=== PATIENT | male | born 1950 | race Caucasian/White ===

== ENCOUNTER 2018-09-26 10:42 | Inpatient (IN) | payer OTHER ==
[~2018-09-26] VITALS: Ht 185.4 cm; Wt 101.2 kg
--- NOTE | 2018-09-26 11:06 | NUR ---
LAB AT BEDSIDE FOR LAB DRAW FROM PT'S LFA IV, DR WADE AT BEDSIDE FOR MSE.
--- NOTE | 2018-09-26 11:15 | NUR ---
XRAY AT BEDSIDE.
--- NOTE | 2018-09-26 11:22 | NUR ---
PT MEDICATED PER EMAR, PT STS IN APPROX 45 MINS, HE IS DUE TO TAKE "MY EPILESY MEDICATION, CAN I TAKE THEM?", PER DR WADE, PT IS OK TO TAKE HOME MEDS FOR EPILEPSY, PT MADE AWARE.
--- NOTE | 2018-09-26 11:25 | NUR ---
PT INSTRUCTED TO PROVIDE CLEAN CATCH URINE SAMPLE, URINAL AND WIPES PLACED AT BEDSIDE, PT PROVIDED WITH PRIVACY, WILL CONTINUE TO MONITOR.
[2018-09-26 11:44] LABS: BASOPHIL % 0.7 % (0-2); PLATELET COUNT 211 x10^3mcL (130-400); RED CELL DISTRIBUTION WIDTH 12.6 % (11.5-14.5)
[2018-09-26 11:50] LABS: CALCIUM 9.1 mg/dL (8.5-10.1); CARBON DIOXIDE 25.6 mmol/L (21-32); CHLORIDE SERUM 106 mmol/L (98-107); CREATININE SERUM 1.2 mg/dL (0.7-1.3); GFR1 > 60 mL/min; GLUCOSE SERUM 109 mg/dL (74-106); POTASSIUM SERUM 4.3 mmol/L (3.5-5.1); SODIUM SERUM 145 mmol/L (136-145)
[2018-09-26 11:55] LABS: ALBUMIN 3.9 g/dL (3.4-5.0); ALKALINE PHOSPHATASE 109 U/L (46-116); ALT/SGPT 44 U/L (16-63); AST/SGOT 36 U/L (15-37); BILIRUBIN TOTAL 0.4 mg/dL (0.20-1.00); TOTAL PROTEIN, SERUM 7.7 g/dL (6.4-8.2)
--- NOTE | 2018-09-26 12:08 | NUR ---
PT MEDICATED PER EMAR.
[2018-09-26] MEDS ORDERED: MYS250 PO ×2 (12:10→15:03)
[2018-09-26] MEDS ORDERED: PRA40 PO (12:11)
[2018-09-26] MEDS ORDERED: TEGRETOL200 MG PO ×4 (12:11→15:08)
[2018-09-26] MEDS ORDERED: ATENOLOL25 MG PO ×2 (12:11→15:10)
[2018-09-26] MEDS ORDERED: LAMOTRIGINE100 M1 PO ×3 (12:12→15:16)
--- NOTE | 2018-09-26 12:37 | NUR ---
OBINNA FRAGA AT BEDSIDE FOR REPEAT EKG.
--- NOTE | 2018-09-26 13:00 | NUR ---
LAB MADE AWARE OF LABS PENDING FOR PT, PHLEBOTOMISTS STATE THEY WILL CARRY OUT ORDER.
--- NOTE | 2018-09-26 13:34 | NUR ---
REPORT GIVEN TO DILIP LAMAR TO ASSUME CARE OF PT.
--- NOTE | 2018-09-26 13:40 | NUR ---
SPOKE WITH MERCHANT BANKER ADI, INFORMED TO PENDING LAB RESULTS FOR PT, STS LABS WILL BE INPUTTED IN APPROX 10 MINS.
--- NOTE | 2018-09-26 14:06 | NUR ---
PT MEDICATED PER EMAR,
--- NOTE | 2018-09-26 14:20 | NUR ---
RECIEVED REPORT FROM MARGRET ED NURSE PRIOR TO PATIENT ARRIVING TO UNIT. ALL QUESTIONS AND CONCERNS ADDRESSED. PATIENT ARRIVED TO ICU 8 AT 1420 VIA GURNEY ATTACHED TO INFANT NANNY ACCOMPANIED [place] NURSE. VS UPON ARRIVAL: TEMP 98.4 F, NIBP 154/71, MAP 88, HR 67, RR 14, 02 SAT 97% AND PATIENT DENIES ANY PAIN AT THIS TIME. NITRO PATCH NOTED TO PATIENT'S MID CHEST. PATIENT IS A/O X4. ABLE TO FOLLOW COMMANDS AND MAKE NEEDS KNOWN. LS ARE CTA BILATERALLY. NO SIGNS OF RESP DISTRESS. SKIN IS INTACT. IV NOTED TO LFA IN PLACE AND INFUSING WELL WITH NO SIGNS OF INFILTRATION. HEPARIN DRIP INFUSING AT 1200 U/HR. BED TO LOWEST POSITION, SIDE RAILS UP X2, CALL LIGHT WITHIN REACH. WILL CONTINUE TO MONITOR.
[2018-09-26 14:57] VITALS: Ht 185.4 cm; Wt 101.2 kg
[2018-09-26] MEDS ORDERED: PRAVASTATIN SOD40 M1 PO (15:10)
[2018-09-26 15:47] VITALS: BP 154/71
--- NOTE | 2018-09-26 17:50 | NUR ---
LAB CALLED WITH CRITICAL TROPONIN 5.395. DR. FROST MADE AWARE AND IS AT BEDSIDE ASSESSING AND TALKING TO PATIENT AT THIS TIME. WILL CONTINUE TO MONITOR.
--- NOTE | 2018-09-26 19:00 | NUR ---
RECEIVED REPORT FROM MICHAEL CHERRY. ASSUMING ALL CARE
[2018-09-26 19:12] VITALS: BP 147/74
--- NOTE | 2018-09-26 19:15 | NUR ---
RECEIVED PT LAYING IN BED. PT IS A/OX4. SPEECH IS CLEAR. ABLE TO MAKE NEEDS KNOWN. PERRLA NOTED BILAT. GCS=15. DENIES MORA. NO FACIAL DROOP NOTED. SEIZURE PRECATIONS IN PLACE. EENT FREE OF DISCHARGE. ORAL MUCOSA PINK AND MOIST. NO JVD NOTED. TRACHEA MIDLINE. BREATHING IS E/U ON RA. LUNGS SOUND CLEAR BILAT. SYMMETRICAL CHEST EXPANSION NOTED. DENIES ANY SOB. S1/S2 HEART SOUNDS AUSCULTATED. CHEST WALL EQUAL AND SYMMETRICAL. PT DENIES ANY CP AT THIS TIME. NITRO PATCH NOTED TO MID CHEST AREA. HR 69 NIBP 147/74 MAP 85. HEPARIN GTT INFUSING @ 1200 UNITS/HR. PALPABLE PULSES X4 EXTREMITIES. SKIN IS WARM AND DRY. NO EDEMA NOTED. CAP REFILL < [address]S. LFA IV IN PL[address] WITH NO S/S OF INFILTRATION NOTED. D5NS INFUSING @ 80 ML/HR. NO JOINT SWELLING/DEFORMITY NOTED. ACTIVE FULL ROM X4 EXTREMITIES. PT IS ON CARDIAC DIET. NO N/V NOTED. ABD IS SOFT, ROUND, NONTENDER TO PALPATION. BOWEL SOUNDS ACTIVE X4 QUADRANTS. NO BM NOTED. PT VOIDS FREELY VIA URINAL. NO SCROTAL EDEMA NOTED. SKIN IS INTACT. PT ABLE TO REPOSITION SELF INDEPENDENTLY. PT IS CALM AND COOPERATIVE. BED IN LOW POSITION. CALL LIGHT IN REACH. WILL CONT TO MONITOR
--- NOTE | 2018-09-26 20:00 | NUR ---
CRIME SCENE SPECIALIST AT BEDSIDE FOR TROPONIN AND PTT LAB DRAW
--- NOTE | 2018-09-26 20:50 | NUR ---
PTT 47.7. NO CHANGE TO HEPARIN GTT PER PROTOCOL. WILL ORDER PTT FOR 01:00.
--- NOTE | 2018-09-26 21:31 | NUR ---
SPOKE TO DR. RODRIGUEZ VIA TELEPHONE. UPDATED ON PT'S STATUS. MADE AWARE OF PT'S MOST RECENT TROPONIN LEVELS. NO NEW ORDERS. WILL CONT TO MONITOR.
[2018-09-26 21:53] VITALS: BP 138/71
--- NOTE | 2018-09-26 21:55 | NUR ---
SPOKE TO DR. RODRIGUEZ VIA TELEPHONE. PER DR. RODRIGUEZ, OK TO TRANSFER PT TO [facility]. WILL INPUT TRX ORDER.
--- NOTE | 2018-09-26 22:10 | NUR ---
REPORT GIVEN TO CORONA GARRIDO AT [facility] FOR CONTINUITY OF CARE. ALL QUESTIONS/CONCERNS ADDRESSED AT THIS TIME.
--- NOTE | 2018-09-26 22:13 | NUR ---
PER DR. RODRIGUEZ, TRX PT WITH CURRENT HEPARIN GTT.
--- NOTE | 2018-09-26 22:40 | NUR ---
PT TRANSFERED AT THIS TIME TO [facility]. PT IS A/OX4. SPEECH IS CLEAR. ABLE TO MAKE NEEDS KNONW. PT ON RA WITH NO S/S OF RESP DISTRESS NOTED. LFA IV REMAINS IN PLACE WITH NO S/S OF INFITLRATION NOTED. HEPARIN GTT INFUSING @ 1200 UNITS/HR. NO S/S OF ACUTE DISTRESS NOTED. VITAL UPON DISCHARGE: HR 71, BP 145/75 MAP 98, RR 15, SPO2 96%. REPORT GIVEN TO [facility] FOR TRX.
--- NOTE | 2018-09-27 07:35 | NUR ---
ECHOCARDIOGRAM NOT DONE-DISCHARGED
== END 2018-09-26 22:42 | disposition short-term general hospital (02) | DRG 282 ==
LOC: ED 10:42 → IC 13:07
PROVIDERS: ADMIT Internal Medicine Pulmonary Disease
DX: I21.4 Non-ST elevation (NSTEMI) myocardial infarction (principal); G40.909 Epilepsy, unspecified, not intractable, without status epilepticus; I10 Essential (primary) hypertension; E78.5 Hyperlipidemia, unspecified; Z87.891 Personal history of nicotine dependence
CPT/HCPCS: 83880; 84439; G0378; J1644; J7042; Q0092